=== PATIENT | female | born 1990 | race Caucasian/White ===

== ENCOUNTER 2019-06-26 07:44 | Outpatient (CLI) | payer BC ==
--- NOTE | 2019-06-26 11:44 | MRI ---
MRI ABDOMEN WITH AND WITHOUT CONTRAST: History: Abdominal pain. Hemangioma of liver. Comparison: None. Findings: Lung bases have no significant pleural fluid. No significant pericardial fluid. Heart size is normal. No significant hepatic steatosis. The spleen is unremarkable. There is a mass within hepatic segment 8 which has imaging characteristics of focal nodular hyperplas ia measuring 2.3 cm in size. There is a T2 hyperintense central scar which has enhancement on the delayed phase of contrast with the remainder the mass isointense on the 5 minute delayed sequence. Th ere is peripheral arterial hyperenhancement with only slight hyperintensity in the portal venous phase. The aortic contour is normal. The pancreas is normal. Adrenal glands are normal. No hydronephrosis. No abnormal arterial enhancing mass. No intrahepatic or extrahepatic biliary dilat ation. The gallbladder is normal. No cholelithiasis. Normal appearance of the visualized thoracic and lumbar spine. Impression: 1. No acute abnormality within the abdomen. 2. 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 Transcribed Date/Time: 06/26/2019 11:57 AM
--- NOTE | 2019-06-26 11:53 | MRI ---
MRI Pelvis W WO Con History: Lower abdominal pain. Comparison: None. Findings: No hydronephrosis. No dilated loops of large or small bowel. Trace free fluid within the pe lvis likely physiologic. Urinary bladder is unremarkable as well as the urethra. 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 Normal contour of the uterus. Small posterior fundal T2 hypointense intramural fibroid measures up to 1.3 cm in greatest dimension. The endometrium is intact. Junctional zone is of normal thickness. Normal appearance of the cervix. The marrow signal of the sacrum is normal as well as the osseous pelvis. Multiple follicles of both ovaries. Right ovarian corpus luteal cyst with crenulation. The vascular flow voids are maintained. No dilated gonadal veins. Impression: Normal examination of the pelvis.
== END 2019-06-26 07:45 | disposition home or self-care (01) ==
LOC: SCSMRI 07:44
PROVIDERS: ATTEND Internal Medicine Gastroenterology
DX: R10.30 Lower abdominal pain, unspecified (principal); D18.03 Hemangioma of intra-abdominal structures; K76.89 Other specified diseases of liver
CPT/HCPCS: 72197; 74183